=== PATIENT | female | born 1935 | race Caucasian/White ===

== ENCOUNTER 2016-10-29 01:46 | Emergency (ER) | payer OTHER, MEDICARE ==
[~2016-10-29] VITALS: Ht 154.9 cm; Wt 77.7 kg
[~2016-10-29 01:46] MED LIST: AMLODIPINE BESYL5 MG PO; ATENOLOL25 MG PO; CALCIUM 500 +1 EAC2 PO; CENTRUM SILVER1 EAC4 PO; FISH OIL 1,0001 EAC7 PO; LOVASTATIN40 MG PO; NORCO 7.5/321 TABLET PO; PRAVASTATIN SOD40 MG PO
[2016-10-29 02:30] LABS: ADD MIUA? YES; BILIRUBIN NEGATIVE; BLOOD MODERATE; COLOR STRAW ((YELLOW)); GLUCOSE (STRIP) NEGATIVE; KETONES NEGATIVE; LEUKOCYTES SMALL; NITRITE NEGATIVE; PROTEIN (STRIP) NEGATIVE; SPECIFIC GRAVITY 1.008 (1.000-1.030); UROBILINOGEN 0.2 MG/DL (0.2-1.0)
[2016-10-29 02:58] LABS: BACTERIA NONE SEEN /HPF; CALCIUM OXALATE CRYSTALS 1+ /HPF; EPITHELIAL CELLS RARE /HPF; MUCUS TRACE /LPF; RED BLOOD CELLS TNTC /HPF (0-5); UCUL ADDED? NO
[2016-10-29 03:04] LABS: BASOPHIL COUNT 0.1 K/uL (0-0.1); EOSINOPHIL (%) 4.1 % (0-5); EOSINOPHIL COUNT 0.3 K/uL (0-0.3); HEMATOCRIT 35.7 % (36.0-46.0); IMMATURE GRANULOCYTE (%) 0.4 % (0.0-0.7); INSTRUMENT ABS NEUTROPHIL CT 4.7 K/uL; LYMPHOCYTE COUNT 2.4 K/uL (1.0-2.8); MCH 30.4 PG (29.0-34.0); MCHC 33.9 G/DL (30.0-36.0); MCV 89.7 FL (83-99); MEAN PLAT.VOLUME 10.8 uM^3 (9.5-12.4); MONOCYTE (%) 9.3 % (3-12); MONOCYTE COUNT 0.8 K/uL (0-0.8); NEUTROPHIL (%) 56.8 % (45-76); NEUTROPHIL COUNT 4.7 K/uL (1.8-6.4); PLATELET COUNT 244 K/uL (156-360); RBC DIS.WIDTH-CV 12.4 % (11.8-14.6); RBC DIS.WIDTH-SD 40.9 % (39-53); RED BLOOD COUNT 3.98 M/uL (3.80-5.20); WHITE BLOOD COUNT 8.3 K/uL (4.1-10.2)
[2016-10-29 03:15] LABS: CHLORIDE 106 mEq/L (99-109); POTASSIUM 3.8 mEq/L (3.7-5.4); SODIUM 140 mEq/L (136-147)
[2016-10-29 03:17] LABS: GLUCOSE 185 mg/dL (70-99)
[2016-10-29 03:19] LABS: ANION GAP 12 MEQ/L (2-14)
[2016-10-29 03:21] LABS: GFR ESTIMATE (CALCULATED) 57 mL/min/
[2016-10-29 03:22] LABS: UREA NITROGEN (BUN) 19 mg/dL (9-23)
[2016-10-29] MEDS ORDERED: PERCOCET 5/31 TABLET PO (03:43)
[2016-10-29 03:56] VITALS: BP 177/93
== END 2016-10-29 03:57 | disposition home or self-care (01) ==
LOC: EME 01:46
PROVIDERS: Emergency Medicine
DX: N20.0 Calculus of kidney (principal); Z87.442 Personal history of urinary calculi; E78.5 Hyperlipidemia, unspecified; I10 Essential (primary) hypertension; Z88.6 Allergy status to analgesic agent; Z91.041 Radiographic dye allergy status
CPT/HCPCS: 74176; 80048; 81003; 85025; 87086; 99281; 99285; J1885; J2270; J2405; J7030

== ENCOUNTER 2017-01-25 12:20 | Observation (INO) | payer OTHER, MEDICARE ==
[~2017-01-25] VITALS: Ht 154.9 cm; Wt 75.9 kg
[~2017-01-25 12:20] MED LIST changes: +PERCOCET 5/31 TABLET PO
[2017-01-25 13:00] LABS: HEMATOCRIT 35.1 % (36.0-46.0); MCH 30.5 PG (29.0-34.0); MCHC 34.2 G/DL (30.0-36.0); MCV 89.3 FL (83-99); MEAN PLAT.VOLUME 10.4 uM^3 (9.5-12.4); PLATELET COUNT 208 K/uL (156-360); RBC DIS.WIDTH-CV 12.4 % (11.8-14.6); RED BLOOD COUNT 3.93 M/uL (3.80-5.20); WHITE BLOOD COUNT 18.2 K/uL (4.1-10.2)
[2017-01-25 13:09] LABS: CHLORIDE 103 mEq/L (99-109); POTASSIUM 3.7 mEq/L (3.7-5.4); SODIUM 135 mEq/L (136-147)
[2017-01-25 13:10] LABS: GLUCOSE 236 mg/dL (70-99)
[2017-01-25 13:12] LABS: ANION GAP 11 MEQ/L (2-14)
[2017-01-25 13:14] LABS: GFR ESTIMATE (CALCULATED) > 59 mL/min/
[2017-01-25 13:15] LABS: UREA NITROGEN (BUN) 11 mg/dL (9-23)
[2017-01-25 14:28] LABS: TROP-I INTERPRETATION NEGATIVE; TROPONIN-I < 0.01 ng/mL (0.0-0.30)
[2017-01-25 15:15] LABS: ADD MIUA? YES; BILIRUBIN NEGATIVE; BLOOD NEGATIVE; COLOR YELLOW ((YELLOW)); GLUCOSE (STRIP) NEGATIVE; KETONES NEGATIVE; LEUKOCYTES TRACE; NITRITE NEGATIVE; PROTEIN (STRIP) 30; SPECIFIC GRAVITY 1.021 (1.000-1.030); UROBILINOGEN 0.2 MG/DL (0.2-1.0)
[2017-01-25 15:25] LABS: BACTERIA NONE SEEN /HPF; CALCIUM OXALATE CRYSTALS 1+ /HPF; EPITHELIAL CELLS RARE /HPF; HYALINE CASTS 0-5 /LPF; MUCUS TRACE /LPF; RED BLOOD CELLS 0-5 /HPF (0-5); UCUL ADDED? NO; WHITE BLOOD CELLS 0-5 /HPF (0-5)
[2017-01-25 18:00] VITALS: BP 142/65
[2017-01-25 19:15] LABS: TROP-I INTERPRETATION NEGATIVE; TROPONIN-I < 0.01 ng/mL (0.0-0.30)
[2017-01-25 19:30] VITALS: BP 131/60
[2017-01-25 19:45] LABS: EOSINOPHIL (%) 0 % (0-5); HEMATOCRIT 30.9 % (36.0-46.0); IMMATURE GRANULOCYTE (%) 0.5 % (0.0-0.7); IMMATURE GRANULOCYTE COUNT 0.1 K/uL; INSTRUMENT ABS NEUTROPHIL CT 12.2 K/uL; LYMPHOCYTE COUNT 1.4 K/uL (1.0-2.8); MCH 30.4 PG (29.0-34.0); MCHC 33.7 G/DL (30.0-36.0); MCV 90.4 FL (83-99); MEAN PLAT.VOLUME 10.7 uM^3 (9.5-12.4); MONOCYTE (%) 6.7 % (3-12); NEUTROPHIL (%) 83.3 % (45-76); NEUTROPHIL COUNT 12.2 K/uL (1.8-6.4); PLATELET COUNT 190 K/uL (156-360); RBC DIS.WIDTH-CV 12.7 % (11.8-14.6); RBC DIS.WIDTH-SD 41.8 % (39-53); RED BLOOD COUNT 3.42 M/uL (3.80-5.20); WHITE BLOOD COUNT 14.7 K/uL (4.1-10.2)
[2017-01-25 20:08] LABS: ALKALINE PHOSPHATASE 54 IU/L (3-129); ANION GAP 8 MEQ/L (2-14); CHLORIDE 105 MEQ/L (99-109); GFR ESTIMATE (CALCULATED) > 59 mL/min/; GLUCOSE 234 mg/dL (70-99); POTASSIUM 3.6 MEQ/L (3.7-5.4); SAMPLE HEMOLYSIS CHECK 0; SAMPLE ICTERIC CHECK 0; SAMPLE LIPEMIA CHECK 0; SODIUM 138 MEQ/L (136-147); TOTAL BILIRUBIN 1.1 MG/DL (0.0-1.0); UREA NITROGEN (BUN) 11 mg/dL (9-23)
[2017-01-25 20:16] LABS: INTER. NORMALIZED RATIO 1.3; PROTHROMBIN TIME 14.4 SEC (10.2-12.9)
[2017-01-25 21:03] LABS: ERTH.SED.RATE 23 MM/HR (0-30)
[2017-01-26 01:01] VITALS: BP 139/61
[2017-01-26 01:38] LABS: TROP-I INTERPRETATION NEGATIVE; TROPONIN-I < 0.01 ng/mL (0.0-0.30)
[2017-01-26 04:36] VITALS: BP 116/58
[2017-01-26 05:12] LABS: AMPHETAMINES QUANT VALUE 0 NG/ML; BARBITUATES QUANT VALUE 0 NG/ML; BENZODIAZEPINES QUANT VALUE 0 NG/ML; BENZODIAZEPINES, URINE SCREEN Negative (200 ng/mL); MARIJUANA QUANT VALUE 0 NG/ML; OPIATES QUANTITATIVE VALUE 0 NG/ML; PHENCYCLIDINE QUANT VALUE 0 NG/ML
[2017-01-26 05:33] LABS: EOSINOPHIL (%) 0.2 % (0-5); HEMATOCRIT 30.5 % (36.0-46.0); IMMATURE GRANULOCYTE (%) 0.6 % (0.0-0.7); IMMATURE GRANULOCYTE COUNT 0.1 K/uL; INSTRUMENT ABS NEUTROPHIL CT 9.8 K/uL; LYMPHOCYTE COUNT 1.4 K/uL (1.0-2.8); MCH 30.5 PG (29.0-34.0); MCHC 33.4 G/DL (30.0-36.0); MCV 91.3 FL (83-99); MEAN PLAT.VOLUME 10.5 uM^3 (9.5-12.4); MONOCYTE (%) 10.5 % (3-12); MONOCYTE COUNT 1.3 K/uL (0-0.8); NEUTROPHIL (%) 77.2 % (45-76); NEUTROPHIL COUNT 9.8 K/uL (1.8-6.4); PLATELET COUNT 181 K/uL (156-360); RBC DIS.WIDTH-CV 12.6 % (11.8-14.6); RBC DIS.WIDTH-SD 42.5 % (39-53); RED BLOOD COUNT 3.34 M/uL (3.80-5.20); WHITE BLOOD COUNT 12.7 K/uL (4.1-10.2)
[2017-01-26 05:55] LABS: ALKALINE PHOSPHATASE 53 IU/L (3-129); ANION GAP 8 MEQ/L (2-14); CHLORIDE 106 MEQ/L (99-109); DIRECT BILIRUBIN 0.2 mg/dL (0.0-0.3); GFR ESTIMATE (CALCULATED) > 59 mL/min/; GLUCOSE 162 mg/dL (70-99); POTASSIUM 3.6 MEQ/L (3.7-5.4); SAMPLE HEMOLYSIS CHECK 0; SAMPLE ICTERIC CHECK 0; SAMPLE LIPEMIA CHECK 0; SODIUM 138 MEQ/L (136-147); UREA NITROGEN (BUN) 10 mg/dL (9-23)
[2017-01-26 08:48] VITALS: BP 130/63
[2017-01-26 08:50] VITALS: BP 126/58
[2017-01-26 08:52] VITALS: BP 155/70
[2017-01-26 11:52] VITALS: BP 117/59
[2017-01-26] MEDS ORDERED: CEPHALEXIN500 MG PO (14:07)
== END 2017-01-26 15:23 | disposition home or self-care (01) ==
LOC: EME 12:20 → 5WEST 16:18 → EDOF 16:18 → ENRESERV 16:21 → 5WEST 17:41
PROVIDERS: Emergency Medicine; Internal Medicine; Physician Assistant Medical
DX: R55 Syncope and collapse (principal); L03.115 Cellulitis of right lower limb; M79.651 Pain in right thigh; R26.2 Difficulty in walking, not elsewhere classified; I10 Essential (primary) hypertension; E78.5 Hyperlipidemia, unspecified; Z88.8 Allergy status to other drugs, medicaments and biological substances; Z88.6 Allergy status to analgesic agent; Z91.041 Radiographic dye allergy status
CPT/HCPCS: 70450; 71020; 80048; 80053; 80076; 80306 90; 81003; 83605; 84484; 85025; 85027; 85610; 85651; 87040; 93005; 93880; 93971; 99281; 99285; G0378; J1644; J7030

== ENCOUNTER 2017-02-18 10:48 | Observation (INO) | payer OTHER, MEDICARE ==
[~2017-02-18] VITALS: Ht 154.9 cm; Wt 73.4 kg
[~2017-02-18 10:48] MED LIST changes: +CEPHALEXIN500 MG PO
[2017-02-18 11:47] LABS: EOSINOPHIL COUNT 0.2 K/uL (0-0.3); HEMATOCRIT 35.6 % (36.0-46.0); IMMATURE GRANULOCYTE (%) 0.2 % (0.0-0.7); INSTRUMENT ABS NEUTROPHIL CT 3.6 K/uL; LYMPHOCYTE COUNT 1.6 K/uL (1.0-2.8); MCH 30.5 PG (29.0-34.0); MCV 89.7 FL (83-99); MEAN PLAT.VOLUME 10.8 uM^3 (9.5-12.4); MONOCYTE COUNT 0.6 K/uL (0-0.8); NEUTROPHIL (%) 59.3 % (45-76); NEUTROPHIL COUNT 3.6 K/uL (1.8-6.4); RBC DIS.WIDTH-CV 12.5 % (11.8-14.6); RBC DIS.WIDTH-SD 41.1 % (39-53); RED BLOOD COUNT 3.97 M/uL (3.80-5.20); WHITE BLOOD COUNT 6.1 K/uL (4.1-10.2)
[2017-02-18 11:49] LABS: PLATELET COUNT 282 K/uL (156-360)
[2017-02-18 12:02] LABS: CHLORIDE 106 mEq/L (99-109); POTASSIUM 4.1 mEq/L (3.7-5.4); SODIUM 139 mEq/L (136-147)
[2017-02-18 12:04] LABS: GLUCOSE 149 mg/dL (70-99)
[2017-02-18 12:05] LABS: ANION GAP 9 MEQ/L (2-14)
[2017-02-18 12:08] LABS: GFR ESTIMATE (CALCULATED) > 59 mL/min/
[2017-02-18 12:09] LABS: UREA NITROGEN (BUN) 16 mg/dL (9-23)
[2017-02-18] MEDS ORDERED: KEFLEX500 MG PO (13:59)
[2017-02-18] MEDS ORDERED: CALTRATE 600 +1 EAC1 PO (14:02)
[2017-02-18] MEDS ORDERED: LO-DOSE ASPIRIN81 M1 PO (14:07)
[2017-02-18] MEDS ORDERED: GLUCOPHAGE XR,500 MG PO (14:09)
[2017-02-18 16:18] VITALS: BP 173/74
[2017-02-18 17:01] LABS: Estimated Average Glucose 160 mg/dL (70-123); HEMOGLOBIN A1c (GLYCOHEMOGLOB) 7.2 % HGB (Below 5.7)
[2017-02-18 17:30] LABS: POINT-OF-CARE METER ID UU13113831
[2017-02-18 17:49] LABS: C-REACTIVE PROTEIN 2.3 MG/L (0-10)
[2017-02-18 20:00] VITALS: BP 144/44
[2017-02-18 21:29] LABS: POINT-OF-CARE METER ID UU13113700
[2017-02-18 23:38] VITALS: BP 157/70
[2017-02-19 07:39] VITALS: BP 161/74
[2017-02-19 08:24] LABS: POINT-OF-CARE METER ID UU13113831
[2017-02-19] MEDS ORDERED: LISINOPRIL10 MG PO (08:25)
[2017-02-19] MEDS ORDERED: CLEOCIN300 MG PO (08:25)
[2017-02-19 09:10] LABS: LYME DISEASE SEROLOGY SCREEN NEGATIVE (NEGATIVE)
[2017-02-19 11:05] LABS: METH RESISTANT S AUREUS PCR NEGATIVE (NEGATIVE)
[2017-02-19 11:06] LABS: PROBE CHECK PASS; SPECIMEN PROCESSING CONTROL PASS
== END 2017-02-19 10:51 | disposition home or self-care (01) ==
LOC: EME 10:48 → 5WEST 15:15 → EDOF 15:15 → ENRESERV 15:17 → 5WEST 16:08
PROVIDERS: Hospitalist; Physician Assistant
DX: L03.115 Cellulitis of right lower limb (principal); M79.89 Other specified soft tissue disorders; I10 Essential (primary) hypertension; E78.5 Hyperlipidemia, unspecified; E11.9 Type 2 diabetes mellitus without complications; Z79.82 Long term (current) use of aspirin; Z79.84 Long term (current) use of oral hypoglycemic drugs; Z82.49 Family history of ischemic heart disease and other diseases of the circulatory system
CPT/HCPCS: 80048; 82948; 83036; 83605; 83880; 85025; 85651; 86140; 86618; 87040; 87641; 93970; 99281; 99285; G0378; J0690; J1650; J2543; J3370; J7030; J7050